=== PATIENT | male | born 1980 | race African-American/Black ===

== ENCOUNTER 2016-04-06 11:36 | Emergency (ER) | payer OTHER ==
[~2016-04-06] VITALS: Ht 170.2 cm; Wt 77.1 kg
[2016-04-06 12:06] LABS: ABSOLUTE BASOPHIL COUNT 0.1 /CUMM (0.0-0.2); ABSOLUTE EOSINOPHIL COUNT 0 /CUMM (0.0-0.7); ABSOLUTE GRANULOCYTE CT 2.1 /CUMM (1.4-6.5); ABSOLUTE LYMPH COUNT 1.9 /CUMM (1.2-3.4); ABSOLUTE MONOCYTE COUNT 0.3 /CUMM (0.10-0.60); BASOPHIL % 1.8 % (0.0-2.0); GRANULOCYTE % 46.9 % (42.2-75.2); HEMATOCRIT 41.9 % (42-52); MEAN CORPUSCULAR HGB 31.3 PG (27.0-31.0); MEAN CORPUSCULAR HGB CONC 35.3 G/DL (33.0-37.0); MEAN CORPUSCULAR VOLUME 88.8 FL (80.0-94.0); MEAN PLATELET VOLUME 9.8 FL (7.4-10.4); PLATELET COUNT 145 /CUMM (130-400); RBC DISTRIBUTION WIDTH 12.4 % (11.5-14.5); RED BLOOD CELL CT 4.72 /CUMM (4.70-6.10); WHITE BLOOD CELL COUNT 4.4 /CUMM (4.8-10.8)
[2016-04-06 13:44] VITALS: BP 113/68
--- NOTE | 2016-04-06 14:11 | ED CARDIAC/CP/PALPITATIONS ---
History of Present Illness General Chief Complaint: Chest Pain Stated Complaint: CHEST PAIN Source: patient, old records Exam Limitations: no limitations Vital Signs & Intake/Output Vital Signs & Intake/Output ED Intake and Output 04/07 0000 04/06 1200 Intake Total Output Total Balance Patient 170 lb Weight Allergies Coded Allergies: NO KNOWN ALLERGIES (02/05/12) Reconcile Medications No Known Home Medications Triage Note: COMPLAINS OF L SIDE CP THAT STARTED MONDAY WHEN HE WAS DRIVING. PAIN IS INTERMITTANT AND SHOOTS INTO HIS NECK AND SHOULDER. Triage Nurses Notes Reviewed? yes Onset: Gradual Duration: day(s): (4), intermittent Timing: recent history Quality/Severity: mild, aching Location: l sided Radiation: arms, back Activities at Onset: none Nitro Today/Relief: no nitro taken today Aspirin Today: no aspirin today Associated Symptoms: denies HPI: 35-year-old male with no medical history presents complaining of left-sided chest pain for the past 4 days intermittent in nature that came on while driving. He states the pain intermittently radiates up into his upper back and left shoulder. No history of similar symptoms in the past the recent trauma or heavy lifting. He denies any associated shortness of breath or pain with inspiration no cough no hemoptysis no fever no chills.. No family history of sudden cardiac disease there are no modifying factors symptoms are not worse with exertion or change in position. He has not taken anything for his symptoms. (CHRISTI SHARP) Past History Travel History Traveled to [place] past 21 day No Medical History Any Pertinent Medical History? none Neurological: NONE EENT: NONE Cardiovascular: NONE Respiratory: NONE Gastrointestinal: NONE Hepatic: NONE Renal: NONE Psychiatric: NONE Endocrine: NONE Blood Disorders: NONE Cancer(s): NONE COLORING ROOM MAN/Reproductive: NONE Surgical History Surgical History: none Psychosocial History What is your primary language Upper Sorbian Tobacco Use: Never used ETOH Use: denies use Illicit Drug Use: denies illicit drug use Family History Hx Contributory? No (CHRISTI SHARP) Review of Systems Review of Systems Constitutional: Reports: see HPI. All Other Systems: Reviewed and Negative Comments Review of systems: See HPI, All other systems negative. Constitutional, no chills no fever, no malaise HEENT: No visual changes no sore throat no congestion, Cardiovascular: No chest pain , no palpitation Skin, no jaundice no rashes, no change in skin Respiratory: No dyspnea no cough no sputum no hemoptysis GI: No nausea no vomiting, no diarrhea, : No dysuria Muscle skeletal: No joint pain, no back pain, no neck pain, Neurologic: No numbness no headache Psych: No stress Heme/endocrine: No bruising no bleeding Immunology: No lymphadenopathy (CHRISTI SHARP) Physical Exam Physical Exam General Appearance: well developed/nourished, no apparent distress, alert, awake , comfortable Cardiovascular: regular rate/rhythm Comments: Well-developed well-nourished person in no acute distress HEENT: Normal EENT exam; PERRL, EOMI, HEAD is atraumatic. moist mucous membranes. Neck: Supple, normal range of motion Back: Nontender, no CVA tenderness. Full range of motion Cardiovascular: Regular rate and rhythms no murmurs rubs Respiratory: Chest tender.There were no bony deformities, no asymmetry. No respiratory distress. Patient speaking in full complete sentences. Breath sounds clear to auscultation bilaterally: NO W/R/R Abdomen: Soft, nontender nondistended, no appreciable organomegaly. Normal bowel sounds. No rebound/guarding, Extremity: No edema, full range of motion of extremities, Neuro: Alert oriented x3, motor sensory normal, There were no obvious focal neurologic abnormalities. Skin: No appreciable rash on exposed skin, skin is warm and dry. Psych: Mood and affect is normal, memory and judgment is normal. Core Measures ACS in differential dx? Yes Severe Sepsis Present: No Septic Shock Present: No (CHRISTI SHARP) Progress Differential Diagnosis: AMI, atrial fibrillation, costochondritis, musculoskeletal pain, myocarditis, pancreatitis, pericarditis, pneumonia, pneumothorax, pulmonary embolism, PUD/GERD Plan of Care: Orders Procedure Date/time Status TROPONIN LEVEL 04/06 1148 Complete COMPREHENSIVE METABOLIC PANEL 04/06 1148 Complete CBC WITHOUT DIFFERENTIAL 04/06 1148 Complete EKG 04/06 1137 Active Laboratory Tests 04/06/16 1155: Anion Gap 10, Estimated GFR > 60, BUN/Creatinine Ratio 14.4, Glucose 100 H, Calcium 9.8, Total Bilirubin 0.7, AST 32, ALT 50, Alkaline Phosphatase 49, Troponin I < 0.01, Total Protein 7.5, Albumin 4.2, Globulin 3.3, Albumin/ Globulin Ratio 1.3, CBC w Diff MAN DIFF ORDERED, RBC 4.72, MCV 88.8, MCH 31.3 H , RDW 12.4, MPV 9.8, Gran % 46.9, Lymphocytes % 43.2, Monocytes % 7.1, Eosinophils % 1.0, Basophils % 1.8, Absolute Granulocytes 2.1, Absolute Lymphocytes 1.9, Absolute Monocytes 0.3, Absolute Eosinophils 0, Absolute Basophils 0.1, Platelet Estimate DECREASED, Normocytic RBCs VERIFIED, Normochromic RBCs VERIFIED, PUBS MCHC 35.3 Discussed with the patient all his lab results he is resting comfortably pain is reproducible with palpation, perc score 0. Patient clinically appears well symptoms and present for 4 days reproducible I discussed the most likely musculoskeletal in nature however. Primary care as needed Tylenol Motrin as needed answered all his questions he feels comfortable with the plan (CHRISTI SHARP) Initial ED EKG: NORMAL SINUS AT 55, NO ACUTE st SEGMENT CHANGES NO AXIS (CHRISTI SHARP) Departure Departure Time of Disposition: 1415 Disposition: HOME OR SELF CARE Condition: Stable Clinical Impression Primary Impression: Atypical chest pain Referrals: BHARAT ALVAREZ MD (PCP/Family) Additional Instructions: Ibuprofen 800 mg every 8 hours, follow up with your primary care physician this week return with any concerns. Departure Forms: Customer Survey General Discharge Information Prescriptions: Current Visit Scripts No Known Home Medications (CHRISTI SHARP) PA/FABRICATION OPERATOR Co-Sign Statement Statement: ED Attending supervision documentation- [] I saw and evaluated the patient. I have also reviewed all the pertinent lab results and diagnostic results. I agree with the findings and the plan of care as documented in the PA's/FABRICATION OPERATOR's documentation. x I have reviewed the ED Record and agree with the PA's/FABRICATION OPERATOR's documentation. [] Additions or exceptions (if any) to the PAs/FABRICATION OPERATOR's note and plan are summarized below: [] (LISA CAMPOS,SIERRA) Critical Care Note Critical Care Note Critical Care Time: non-applicable (CHRISTI SHARP)
== END 2016-04-06 14:38 ==
LOC: ERH 11:36
PROVIDERS: Emergency Medicine
DX: R07.9 Chest pain, unspecified (principal)
CPT/HCPCS: 93005; 93010